=== PATIENT | female | born 2000 | race Caucasian/White ===

== ENCOUNTER 2024-07-26 10:32 | Emergency (ER) | payer OTHER ==
[~2024-07-26] VITALS: Ht 170.2 cm; Wt 68.2 kg
[2024-07-26 10:37] VITALS: PULSE 68
[2024-07-26] MEDS ORDERED: dexamethasone 4mg tablet PO ONE (10:45)
[2024-07-26] MEDS: ketorolac trometh 30MG/ML vial 30 MG/ML VIAL IM ONE (11:03)
[2024-07-26] MEDS: dexamethasone 4mg tablet PO ONE (11:06)
[2024-07-26] MEDS: dexamethasone 1mg tablet PO ONE (11:06)
[2024-07-26] MEDS ORDERED: HYDR-3965 PO (12:03)
[2024-07-26] MEDS: HYDROcodone/acetaminophen 5mg/325mg tablet PO ONE (12:12)
[2024-07-26 12:35] VITALS: BP 106/70; RESP 16; TEMP 98.3; O2SAT 99
== END 2024-07-26 12:41 | disposition home or self-care (01) ==
LOC: ER 10:34
DX: M54.16 Radiculopathy, lumbar region (principal)
CPT/HCPCS: 96372; 99284; J1885; J8540